=== PATIENT | female | born 1980 | race Two or more races ===

== ENCOUNTER 2020-10-27 15:07 | Emergency (ER) | payer OTHER ==
[~2020-10-27] VITALS: Ht 154.9 cm; Wt 98.4 kg
[2020-10-27] MEDS ORDERED: PROMETRIUM200 MG (15:38)
== END 2020-10-27 21:37 ==
LOC: ER 15:07
DX: O20.0 Threatened abortion (principal); O23.41 Unspecified infection of urinary tract in pregnancy, first trimester; Z3A.11 11 weeks gestation of pregnancy

== ENCOUNTER → 2020-10-31 11:31 | Outpatient (CLI) | payer OTHER ==
[~2020-10-31 11:31] MED LIST: ACETAMINOPHEN650 M2 PO; PROMETRIUM200 MG
== END | disposition home or self-care (01) ==
LOC: LAB 11:31
PROVIDERS: ATTEND General Practice
DX: O20.0 Threatened abortion (principal)

== ENCOUNTER 2020-11-06 19:10 | Emergency (ER) | payer OTHER ==
[~2020-11-06] VITALS: Ht 154.9 cm; Wt 98.4 kg
[~2020-11-06 19:10] MED LIST changes: -ACETAMINOPHEN650 M2 PO
[2020-11-07] MEDS ORDERED: ACETAMINOPHEN650 M2 PO (00:10)
== END 2020-11-07 00:31 | disposition home or self-care (01) ==
LOC: ER 19:10
DX: O20.0 Threatened abortion (principal); O26.891 Other specified pregnancy related conditions, first trimester; R10.2 Pelvic and perineal pain; Z34.01 Encounter for supervision of normal first pregnancy, first trimester

== ENCOUNTER 2021-03-07 18:57 | Outpatient (CLI) | payer OTHER ==
[~2021-03-07 18:57] MED LIST changes: +ACETAMINOPHEN650 M2 PO
== END 2021-03-08 12:18 | disposition home or self-care (01) ==
LOC: OBS/DEL 18:57
PROVIDERS: ATTEND Obstetrics & Gynecology
DX: O44.43 Low lying placenta NOS or without hemorrhage, third trimester (principal); Z3A.31 31 weeks gestation of pregnancy

== ENCOUNTER 2021-03-24 19:12 | Outpatient (CLI) | payer OTHER | END 2021-03-25 10:18 | disposition home or self-care (01) | LOC: OBS/DEL 19:12 | PROVIDERS: ATTEND Obstetrics & Gynecology | DX: O44.42 Low lying placenta NOS or without hemorrhage, second trimester (principal); O46.8X2 Other antepartum hemorrhage, second trimester; O26.892 Other specified pregnancy related conditions, second trimester; R10.2 Pelvic and perineal pain; Z3A.22 22 weeks gestation of pregnancy ==

== ENCOUNTER 2021-04-12 22:37 | Inpatient (IN) | payer OTHER ==
[~2021-04-12] VITALS: Ht 154.9 cm; Wt 99.8 kg
[2021-04-12] MEDS ORDERED: CHILDREN'S ASPI81 MG PO (23:30)
[2021-04-12] MEDS ORDERED: PRENATAL TABLE1 EAC1 PO (23:30)
[2021-04-14] MEDS ORDERED: PROGESTERO50 MG/1 M1 (08:09)
[2021-04-16] MEDS ORDERED: NIFEDIPINE20 MG PO (07:14)
== END 2021-04-16 10:05 | disposition home or self-care (01) | DRG 831 ==
LOC: LDR 22:37 → OB/GYN 04-14 17:23 → LDR 04-14 21:05 → OB/GYN 04-15 09:34
PROVIDERS: ADMIT Obstetrics & Gynecology; ATTEND Obstetrics & Gynecology
PROC: 4A1HXFZ Monitoring of Products of Conception, Cardiac Rhythm, External Approach (ICD-10-PCS; principal; 2021-04-12)
PROC: BY4FZZZ Ultrasonography of Third Trimester, Single Fetus (ICD-10-PCS; 2021-04-13)
DX: O46.93 Antepartum hemorrhage, unspecified, third trimester (principal); O60.03 Preterm labor without delivery, third trimester; O99.013 Anemia complicating pregnancy, third trimester; D64.9 Anemia, unspecified; Z3A.35 35 weeks gestation of pregnancy; Z20.822 Contact with and (suspected) exposure to COVID-19

== ENCOUNTER 2021-05-06 08:15 | Inpatient (IN) | payer OTHER ==
[~2021-05-06] VITALS: Ht 154.9 cm; Wt 3.2 kg
[~2021-05-06 08:15] MED LIST changes: +CHILDREN'S ASPI81 MG PO; +NIFEDIPINE20 MG PO; +PRENATAL TABLE1 EAC1 PO; +PROGESTERO50 MG/1 M1
[2021-05-06] MEDS ORDERED: PRENATABS RX T1 EACH PO (09:35)
[2021-05-06] MEDS ORDERED: ADULT LOW DOSE81 M1 PO (09:35)
[2021-05-06] MEDS ORDERED: NIFEDIPINE20 MG PO (09:36)
[2021-05-09] MEDS ORDERED: HYDROXYZINE PAM25 MG (08:17)
[2021-05-09] MEDS ORDERED: NIFEDIPINE10 M1 (08:17)
[2021-05-09] MEDS ORDERED: ESTRADIOL2 MG (08:18)
[2021-05-11] MEDS ORDERED: IBUPROFEN800 MG PO (12:09)
[2021-05-11] MEDS ORDERED: SIMETHICONE125 M1 PO (12:09)
[2021-05-11] MEDS ORDERED: SENOKOT8.6 M1 PO (12:09)
== END 2021-05-11 16:01 | disposition home or self-care (01) | DRG 788 ==
LOC: LDR 05-08 05:11 → OB/GYN 05-08 05:11
PROVIDERS: ADMIT Obstetrics & Gynecology; ATTEND Obstetrics & Gynecology
PROC: 4A1HXFZ Monitoring of Products of Conception, Cardiac Rhythm, External Approach (ICD-10-PCS; 2021-05-08)
PROC: 10D00Z1 Extraction of Products of Conception, Low, Open Approach (ICD-10-PCS; principal; 2021-05-08 07:00)
DX: O34.211 Maternal care for low transverse scar from previous cesarean delivery (principal); O99.824 Streptococcus B carrier state complicating childbirth; Z3A.39 39 weeks gestation of pregnancy; Z37.0 Single live birth

== ENCOUNTER 2023-04-06 06:53 | Day surgery (SDC) | payer OTHER ==
[~2023-04-06] VITALS: Ht 154.9 cm; Wt 99.8 kg
[~2023-04-06 06:53] MED LIST changes: +ADULT LOW DOSE81 M1 PO; +ESTRADIOL2 MG; +HYDROXYZINE PAM25 MG; +IBUPROFEN800 MG PO; +NIFEDIPINE10 M1; +PRENATABS RX T1 EACH PO; +SENOKOT8.6 M1 PO; +SIMETHICONE125 M1 PO
== END 2023-04-06 16:35 | disposition home or self-care (01) ==
LOC: CIR.AMB 06:53
PROVIDERS: ATTEND Orthopaedic Surgery Hand Surgery
DX: G56.02 Carpal tunnel syndrome, left upper limb (principal); Z20.822 Contact with and (suspected) exposure to COVID-19